=== PATIENT | male | born 1985 | race Caucasian/White ===

== ENCOUNTER 2020-09-29 16:21 | Emergency (ER) | payer SELFPAY ==
[2020-09-29 16:39] VITALS: BP 151/88; PULSE 67; RESP 18; TEMP 36.9; O2SAT 97; BMI 28.1
--- NOTE | 2020-09-29 17:48 | ED.GENADULT ---
HPI - General Adult General Chief complaint: Nausea/Vomiting/Diarrhea Stated complaint: vomiting Time Seen by Provider: 09/29/20 17:40 Source: patient Mode of arrival: ambulatory Limitations: no limitations History of Present Illness HPI narrative: Patient comes emergency room complaining of vomiting for 3 days. Patient states that he has been smoking marijuana, states that he is known to be slightly allergic to marijuana. Patient denies rash, no shortness of breath, no foreign body sensation in the oropharynx, no diarrhea. No UTI. Patient complaining of diffuse body ?cramping?. Patient complaining of a burning sensation in his esophagus. Patient states that he has been trying ondansetron with no relief. Related Data Previous Rx's Medication Instructions Recorded metoclopramide HCl [Reglan] 5 mg PO DAILY #10 tab 09/29/20 omeprazole 20 mg PO DAILY #10 cap 09/29/20 Allergies Allergy/AdvReac Type Severity Reaction Status Date / Time No Known Allergies Allergy Unverified 12/08/19 15:58 [No Known Allergies*] Review of Systems Review of Systems: Constitutional : No Weight loss, No Fever, No Chills, No Night Sweats, No Fatigue, No Malaise ENT/Mouth : No Hearing loss, No Ear Pain, No Nasal Congestion, No Sinus Pain, No Hoarseness, No sore throat, No Rhinorrhea, No Swallowing Difficulty Eyes: No Eye Pain, No Swelling, No Redness, No Foreign Body, No Discharge, No Vision Changes Cardiovascular : No Chest Pain, No SOB, No Dyspnea on Exertion, No Orthopnea, No Edema, No Palpitations Respiratory : No Cough, No Sputum, No Wheezing, No Smoke Exposure, No Dyspnea Gastrointestinal : Complaining of nausea and vomiting, complaining GERD, No Diarrhea, No Constipation, No abdominal Pain, No Hematochezia, No Melena Genitourinary : no irregular bleeding, No Dysuria, No Urinary Frequency, No Hematuria, No Urinary Incontinence, No Urgency, No Flank Pain, No Urinary Flow Changes, No Hesitancy Musculoskeletal : No joint pain, No Myalgias, No Joint Swelling, complaining of diffuse body cramping Skin : No Skin Lesions, No rash Neuro : No Weakness, No Numbness, No Paresthesias, No Loss of Consciousness, No Dizziness, No Headache Psych : No Anxiety/Panic, No Depression, No SI/HI/AH/VH, No Social Issues, Heme/Lymph: No Bruising, No Bleeding,No Lymphadenopathy Endocrine : No Polyuria, No Polydipsia, No Temperature Intolerance [facility] Past Medical History Medical History (Updated 09/29/20 @ 18:56 by Margaret Perez MD) ACL (anterior cruciate ligament) tear Cyclical vomiting Gastrointestinal mucositis (ulcerative) Marijuana abuse Social History Social History Advance Directives: No Advance Directives Information Provided: Yes Physical Exam Vital Signs: Vital Signs: Last Vital Signs Temp 98.5 F 09/29/20 16:39 Pulse 67 09/29/20 16:39 Resp 18 09/29/20 16:39 BP 151/88 H 09/29/20 16:39 Pulse Ox 97 09/29/20 16:39 Body Mass Index 28.1 Appearance: Alert. Oriented X3. No acute distress. Eyes: Pupils equal, round and reactive to light. ENT: Dry oral mucosa. Neck: Normal inspection. Neck supple. No lymph nodes noted. No crepitus CVS: Normal heart rate and rhythm. Pulses normal. Normal S1 and S2 Respiratory: No respiratory distress. Breath sounds normal. No Wheezing. No rales Abdomen: Soft and nontender. No rigidity. No distention. good BS x4 Skin: Skin warm and dry. Normal skin color. Normal skin turgor. Extremities: No lower extremity edema. No lower extremity edema. No Lacerations. No Rash Neuro: Oriented X 3. No motor deficit. No sensory deficit. Moving all extermities. No slurred speech. Course Course Course Narrative: All of patient's labs are pending. Patient is being giving IV fluids and antiemetic medication. Patient's symptoms is likely due to cyclic vomiting secondary to marijuana abuse. Sign out given to Dr. Crenshaw Discharge Plan Discharge Clinical Impression: Gastroesophageal reflux disease Vomiting Qualifiers: Vomiting type: unspecified Vomiting Intractability: unspecified Nausea presence: unspecified Qualified Code(s): R11.10 - Vomiting, unspecified Patient Disposition: Home, Self-Care Instructions: Acute Nausea and Vomiting (ED) Additional Instructions: Stay well hydrated, drink fluids with electrolytes such as Pedialyte, Gatorade. Please follow-up with your primary care physician tomorrow. If you have any worsening or new symptoms, please return to the emergency room or call 911 Prescriptions: New metoclopramide HCl [Reglan] 5 mg tablet 5 mg PO DAILY Qty: 10 RF: 0 omeprazole 20 mg capsule,delayed release(DR/EC) 20 mg PO DAILY Qty: 10 RF: 0
[2020-09-29 19:11] VITALS: BP 117/71; PULSE 94; RESP 14; TEMP 37.3; O2SAT 96
[2020-09-29 19:36] LABS: Hematocrit 46.1 % (42-52); Hemoglobin 16.4 g/dl (14.0-18.0); Mean Corpuscular HGB Conc 35.6 g/dl (31.0-36.0); Mean Corpuscular Hemoglobin 31.7 pg (27.0-33.0); Mean Corpuscular Volume 89.2 fL (80-98); Mean Platelet Volume 10.7 fL (9.4-12.4); Platelet Count 292 X10*3/uL (160-400); Red Blood Count 5.17 X10*6/uL (4.60-5.80); Red Cell Distribution Width 12.5 % (11.0-16.0)
[2020-09-29 19:46] LABS: WBC ABN SCTR FOR CBC 1
[2020-09-29] MEDS: Famotidine/PF 20 MG/2 ML VIAL IVPUSH (19:59)
[2020-09-29] MEDS: 0.9 % Sodium Chloride 1,000 ML 999 ML IVCONT ×2 (19:59→23:04)
[2020-09-29] MEDS: Prochlorperazine Edisylate 10 MG/2 ML VIAL IVPUSH (19:59)
[2020-09-29 20:01] LABS: Band Neutrophils Percent 0 % (3-5); Lymphocytes Percent Manual 10 % (20-40); Metamyelocytes Percent 1 %; Monocytes Percent Manual 11 % (2-11); Neutrophils Percent Manual 78 % (45-73)
[2020-09-29 20:05] LABS: Alanine Aminotransferase 15 U/L (0-40); Albumin Level 5.4 g/dL (3.5-5.0); Alkaline Phosphatase 103 U/L (39-117); Aspartate Amino Transferase 22 U/L (5-37); Bilirubin Direct 0.3 mg/dL (0.0-0.5); Bilirubin Total 0.8 mg/dL (0.0-1.0); Blood Urea Nitrogen 33 mg/dL (9-16); Creatinine Clr Calc Pharmacy 64.7; Estimated Glomerular Filt Rate 48; Glucose Random 124 mg/dL (60-115); Lipase 6 U/L (8-78); Total Protein 9.4 g/dL (6.5-8.0)
--- NOTE | 2020-09-29 20:05 | PC.NURSE ---
pt medicated per md order, reports 7/10 bilateral flank pain with diffuse body cramping/spasms intermittently. Pt up to bathroom to enduce vomitting, wrenching and belching noted. PT with fluids infusing and on a pole. RN will continue to monitor
[2020-09-29 20:08] LABS: Platelet Estimate NORMAL (NORMAL)
[2020-09-29 20:10] LABS: Anion Gap 21 (12-20); Calcium 11.4 mg/dL (8.4-10.2); Carbon Dioxide 25 mmol/L (22-29); Chloride 98 mmol/L (96-108); Potassium 4.1 mmol/L (3.3-5.1); Sodium 140 mmol/L (135-145)
[2020-09-29 20:15] LABS: RBC Morphology NOTED
[2020-09-29 20:16] LABS: Schistocytes 1+ (0-2) /OIF
[2020-09-29 20:17] LABS: Hypersegmented Neutrophils PRESENT; Microcytosis 1+ (5-14) /OIF; Platelet Morphology Comment NORM
[2020-09-29 20:18] LABS: Lymphocytes Absolute Manual 2.1 X10*3/uL (0.6-4.8); Metamyelocytes Absolute 0.2 X10*3/uL; Monocytes Absolute Manual 2.3 X10*3/uL (0.0-1.2); Neutrophils Absolute Manual 16.5 X10*3/uL (2.2-7.9); White Blood Count 21.2 X10*3/uL (4.8-10.8)
[2020-09-29 22:00] VITALS: BP 105/63; PULSE 62; RESP 22; TEMP 37.1; O2SAT 95
--- NOTE | 2020-09-29 22:15 | PC.NURSE ---
RN in bed 8 and patient could be heard stopping a passing by RN stating I'm waiting for my nurse, I'm waiting for my other bag of fluids. If I don't get it I'll just go home . Rn to bedside and re-educated patient on use of call brown as it was noted to be on the bed. Pt made aware of no new fluid orders at this time and plan for potential discharge. PT states that he does not feel comfortable with a dc as he reports I usually get like 4-5 bags. I'm not ready to go home. I still feel dizzy, weak and don't think I can hold anything down ; RN stated she would notify the MD of his reports.
--- NOTE | 2020-09-29 23:11 | PC.NURSE ---
RN to bedside to medicate pt per MD. Pt denies the presence of pain at this time however reports intermittent nausea without vomiting. Urine sample obtained and sent for testing. Pt offered a warm blanket and declined. Call brown is within reach and RN will continue to monitor.
[2020-09-29 23:13] LABS: Glucose Urine UA NEG (NEG); Leukocyte Esterase Urine NEG (NEG); Nitrite Urine NEG (NEG); Specific Gravity - Urine >= 1.030 (1.005-1.025); Urine Blood NEG (NEG); Urine Ketones 15 MG/DL (NEG); Urine Protein TRACE MG/DL (NEG-TRACE)
[2020-09-29 23:19] LABS: Appearance Urine CLEAR; Color Urine YELLOW
[2020-09-29 23:33] LABS: Amphetamine Screen Urine Not Detected (Not Detect); Barbiturates, Urine Not Detected (Not Detect); Benzodiazepines Screen Urine Not Detected (Not Detect); Cannabinoid Screen Urine POSITIVE (Not Detect); Cocaine Screen Urine Not Detected (Not Detect); Opiate Screen Urine Not Detected (Not Detect); Phencyclidine Screen Urine Not Detected (Not Detect)
[2020-09-30] MEDS: 0.9 % Sodium Chloride 1,000 ML 999 ML IVCONT (00:49)
[2020-09-30 02:53] VITALS: BP 128/58; PULSE 61; RESP 18; O2SAT 99
== END 2020-09-30 03:05 | disposition home or self-care (01) ==
PROVIDERS: Emergency Provider Emergency Medicine
DX: R11.10 Vomiting, unspecified (principal); K21.9 Gastro-esophageal reflux disease without esophagitis; F12.10 Cannabis abuse, uncomplicated
CPT/HCPCS: 36415; 80048; 80076; 80307; 81003; 83690; 85007; 85027; 96360; 96361; 96374; 96375; 99284

== ENCOUNTER 2021-08-15 15:01 | Emergency (ER) | payer SELFPAY ==
[2021-08-15 15:47] VITALS: BP 114/84; PULSE 107; RESP 18; TEMP 36.8; O2SAT 98; BMI 26.6
[2021-08-15] MEDS: Ondansetron ODT 4 MG TAB.RAPDIS TRANSLINGU (15:51)
[2021-08-15 17:24] VITALS: BP 125/74; PULSE 101; RESP 18; O2SAT 98
[2021-08-15 17:28] LABS: Basophils Absolute Auto 0.1 X10*3/uL (0.0-0.2); Basophils Percent Auto 0.3 % (0-2); Eosinophils Percent Auto 0.1 % (0-4); Hematocrit 48.5 % (42.0-52.0); Hemoglobin 16.4 g/dl (14.0-18.0); Imm Gran Abs Auto 0.26 X10*3/uL (0.00-0.03); Imm Gran Pct Auto 1.1 % (0.0-0.4); Lymphocytes Absolute Auto 1.6 X10*3/uL (1.2-4.9); MANUAL DIFF FLAG SCAN; Mean Corpuscular HGB Conc 33.8 g/dl (31.0-36.0); Mean Corpuscular Hemoglobin 31.1 pg (27.0-33.0); Mean Platelet Volume 10.9 fL (9.4-12.4); Monocytes Absolute Auto 1.5 X10*3/uL (0.1-1.2); Monocytes Percent Auto 6.6 % (2-11); Neutrophils Absolute Auto 19.7 x10*3/uL (2.0-8.3); Neutrophils Percent Auto 84.9 % (45-73); Platelet Count 320 X10*3/uL (160-400); Red Blood Count 5.27 X10*6/uL (4.60-5.80); Red Cell Distribution Width 13.5 % (11.0-16.0); SCAN SMEAR FLAG 1; White Blood Count 23.2 X10*3/uL (4.8-10.8)
[2021-08-15 17:49] LABS: SLIDE REVIEW VERIFIED
[2021-08-15 17:50] LABS: Influenza A Negative (Negative); Influenza B2 Negative (Negative)
[2021-08-15 17:51] LABS: COVID-19 Test Negative (Negative); IDNOW Serial# 16C4AD1C
[2021-08-15 18:01] LABS: Alanine Aminotransferase 45 U/L (0-40); Albumin Level 5.7 g/dL (3.5-5.0); Alkaline Phosphatase 74 U/L (39-117); Anion Gap 36 (12-20); Aspartate Amino Transferase 46 U/L (5-37); Bilirubin Total 0.8 mg/dL (0.0-1.0); Blood Urea Nitrogen 26 mg/dL (9-16); Calcium 11.6 mg/dL (8.4-10.2); Carbon Dioxide 13 mmol/L (22-29); Chloride 96 mmol/L (96-108); Creatinine Clr Calc Pharmacy 37.1; Estimated Glomerular Filt Rate 28; Glucose Random 152 mg/dL (60-115); Potassium 4.3 mmol/L (3.3-5.1); Sodium 141 mmol/L (135-145); Total Protein 9.8 g/dL (6.5-8.0)
[2021-08-15 18:30] LABS: Glucose, Whole Blood 162 mg/dL (60-115)
--- NOTE | 2021-08-15 19:44 | PC.NURSE ---
Pt requesting not to have a CT performed at this time. Labs and plan to move pt to ED [facility]
[2021-08-15 22:03] VITALS: BP 148/85; PULSE 65; RESP 18; TEMP 37.1; O2SAT 97
[2021-08-15 22:27] LABS: Acetone, serum QL Small (Negative)
--- NOTE | 2021-08-15 22:44 | ED_ITS ---
HPI - Nausea/Vomiting/Diarrhea General Chief complaint: Nausea/Vomiting/Diarrhea Stated complaint: vomiting Time Seen by Provider: 08/15/21 16:57 Source: patient Mode of arrival: ambulatory History of Present Illness HPI Narrative: Is a 35-year-old male with history of ulcerative colitis not currently on medications as well as history of cyclical vomiting and reports that he smoked marijuana on Thursday and then began developing multiple in repeated nausea and vomiting episodes with the inability to keep down anything to eat or drink. He denies any significant diarrhea and on the occasions that he has experienced diarrhea denies the presence of blood. Otherwise, he denies any fever, chills, urinary symptoms, shortness breath or chest pain. Related Data Previous Rx's Medication Instructions Recorded metoclopramide HCl 5 mg tablet 5 mg PO DAILY #10 tab 09/29/20 (Reglan) omeprazole 20 mg capsule,delayed 20 mg PO DAILY #10 cap 09/29/20 release omeprazole 40 mg capsule,delayed 40 mg PO DAILY #30 cap 08/16/21 release ondansetron 4 mg disintegrating 4 mg PO Q6H PRN #10 tab 08/16/21 tablet Allergies Allergy/AdvReac Type Severity Reaction Status Date / Time No Known Allergies Allergy Verified 08/15/21 15:46 [No Known Allergies*] Review of Systems Review of Systems: Pertinent positives and negatives as stated in HPI 10 point review of systems is otherwise negative. PMFSH Past Medical History Source: nursing notes reviewed Medical History ACL (anterior cruciate ligament) tear Cyclical vomiting Gastrointestinal mucositis (ulcerative) Marijuana abuse Social History Social History Advance Directives: No Advance Directives Information Provided: No Physical Exam Vital Signs: Vital Signs: Last Vital Signs Temp 98.5 F 08/16/21 06:07 Pulse 78 08/16/21 06:07 Resp 16 08/16/21 06:07 BP 142/69 H 08/16/21 06:07 Pulse Ox 98 08/16/21 06:07 BMI result Body Mass Index 26.6 VITAL SIGNS: Reviewed. GENERAL: Well developed, well nourished, in no acute distress. HEAD: Normocephalic/atraumatic EYES: PERRLA, EOMI EARS: Ext canals without abnormality, TMs non-bulging and non-erythematous NOSE: Nares patent bilateral OROPHARYNX: no oral lesions noted, posterior pharynx clear, dry mucosa NECK: Supple, no adenopathy LUNGS: Normal breath sounds. No adventitious sounds or accessory muscle use. SpO2<97> CARDIOVASCULAR: Regular rate and rhythm without noted murmurs ABDOMEN: Soft, non-tender, non-distended with bowel sounds. SKIN: Inspection of the skin reveals no rashes NEUROLOGIC: Alert and oriented x 4. Strength and sensation to light touch were grossly intact x 4. Course Course Course Narrative: 35-year-old male with history and clinical presentation consistent with severe dehydration and on review of all investigations the noted leukocytosis is likely secondary to cyclical vomiting as chest/abdomen are otherwise benign on clinical exam, there is no evidence ulcerative colitis flare, patient is afebrile and noted to be significantly acidotic again pointing towards significant dehydration. Patient to receive antiemetics/IV fluids/medications for gastritis. After total 4 L of IV fluids in re-evaluation of chemistries patient shows a significant improvement in dehydration status and will be discharged home in stable condition with a prescription for omeprazole as well as strict instructions to attempt to avoid THC ingestion as much as possible. In addition, patient will be provided with antiemetics. MDM - Nausea/Vomiting/Diarrhea Lab Data Result diagrams: 08/15/21 17:11 08/16/21 05:50 Labs: Lab Results 08/15/21 08/15/21 08/15/21 Range/Units 17:11 17:11 17:11 WBC 23.2 H (4.8-10.8) X10*3/uL RBC 5.27 (4.60-5.80) X10*6/uL Hgb 16.4 (14.0-18.0) g/dl Hct 48.5 (42.0-52.0) % MCV 92.0 (80.0-98.0) fL MCH 31.1 (27.0-33.0) pg MCHC 33.8 (31.0-36.0) g/dl RDW 13.5 (11.0-16.0) % Plt Count 320 (160-400) X10*3/uL MPV 10.9 (9.4-12.4) fL Immature Gran % (Auto) 1.1 H (0.0-0.4) % Neut % (Auto) 84.9 H (45-73) % Lymph % (Auto) 7.0 L (20-40) % [place] % (Auto) 6.6 (2-11) % Eos % (Auto) 0.1 (0-4) % Baso % (Auto) 0.3 (0-2) % Lymph # (Auto) 1.6 (1.2-4.9) X10*3/uL [place] # (Auto) 1.5 H (0.1-1.2) X10*3/uL Eos # (Auto) 0.0 (0.0-0.4) X10*3/uL Baso # (Auto) 0.1 (0.0-0.2) X10*3/uL Abs Immat Gran (auto) 0.26 H (0.00-0.03) X10*3/uL Absolute Neuts (auto) 19.7 H (2.0-8.3) x10*3/uL Absolute Nucleated RBC 0.000 (0.0-0.012) X10*3/uL Nucleated RBC % (auto) 0.0 (0.0-0.2) /100WBC Smear Tech's Comments VERIFIED Sodium 141 (135-145) mmol/L Potassium 4.3 (3.3-5.1) mmol/L Chloride 96 (96-108) mmol/L Carbon Dioxide 13 L (22-29) mmol/L Anion Gap 36 H (12-20) BUN 26 H (9-16) mg/dL Creatinine 2.62 H (0.5-1.4) mg/dL Estim Creat Clear Calc 37.1 Estimated GFR 28 POC Glucose (60-115) mg/dL Random Glucose 152 H (60-115) mg/dL Lactic Acid (0.5-2.0) mmol/L Calcium 11.6 H (8.4-10.2) mg/dL Total Bilirubin 0.8 (0.0-1.0) mg/dL AST 46 H D (5-37) U/L ALT 45 H (0-40) U/L Alkaline Phosphatase 74 D (39-117) U/L Total Protein 9.8 H (6.5-8.0) g/dL Albumin 5.7 H (3.5-5.0) g/dL Urine Color Urine Appearance Urine pH (5.0-8.0) Ur Specific [place] (1.005-1.025) Urine Protein (NEG-TRACE) MG/DL Urine Glucose (UA) (NEG) MG/DL Urine Ketones (NEG) MG/DL Urine Blood (NEG) Urine Nitrite (NEG) Ur Leukocyte Esterase (NEG) Urine RBC (0) /HPF Urine WBC (0-4) /HPF Ur Squamous Epith Cells /LPF Urine Bacteria /LPF Hyaline Casts /LPF Granular Casts /LPF Urine Mucus /LPF Acetone, Qual Small H (Negative) COVID-19 (ADRIANA) (Negative) COVID-19 Clin Com Influenza Type A (ANAMIKA) Negative (Negative) Influenza Type B (ANAMIKA) Negative (Negative) Influenza A & B Note See Note 08/15/21 08/15/21 08/15/21 Range/Units 17:11 17:26 22:34 WBC (4.8-10.8) X10*3/uL RBC (4.60-5.80) X10*6/uL Hgb (14.0-18.0) g/dl Hct (42.0-52.0) % MCV (80.0-98.0) fL MCH (27.0-33.0) pg MCHC (31.0-36.0) g/dl RDW (11.0-16.0) % Plt Count (160-400) X10*3/uL MPV (9.4-12.4) fL Immature Gran % (Auto) (0.0-0.4) % Neut % (Auto) (45-73) % Lymph % (Auto) (20-40) % [place] % (Auto) (2-11) % Eos % (Auto) (0-4) % Baso % (Auto) (0-2) % Lymph # (Auto) (1.2-4.9) X10*3/uL [place] # (Auto) (0.1-1.2) X10*3/uL Eos # (Auto) (0.0-0.4) X10*3/uL Baso # (Auto) (0.0-0.2) X10*3/uL Abs Immat Gran (auto) (0.00-0.03) X10*3/uL Absolute Neuts (auto) (2.0-8.3) x10*3/uL Absolute Nucleated RBC (0.0-0.012) X10*3/uL Nucleated RBC % (auto) (0.0-0.2) /100WBC Smear Tech's Comments Sodium (135-145) mmol/L Potassium (3.3-5.1) mmol/L Chloride (96-108) mmol/L Carbon Dioxide (22-29) mmol/L Anion Gap (12-20) BUN (9-16) mg/dL Creatinine (0.5-1.4) mg/dL Estim Creat Clear Calc Estimated GFR POC Glucose 162 H (60-115) mg/dL Random Glucose (60-115) mg/dL Lactic Acid 1.5 (0.5-2.0) mmol/L Calcium (8.4-10.2) mg/dL Total Bilirubin (0.0-1.0) mg/dL AST (5-37) U/L ALT (0-40) U/L Alkaline Phosphatase (39-117) U/L Total Protein (6.5-8.0) g/dL Albumin (3.5-5.0) g/dL Urine Color Urine Appearance Urine pH (5.0-8.0) Ur Specific [place] (1.005-1.025) Urine Protein (NEG-TRACE) MG/DL Urine Glucose (UA) (NEG) MG/DL Urine Ketones (NEG) MG/DL Urine Blood (NEG) Urine Nitrite (NEG) Ur Leukocyte Esterase (NEG) Urine RBC (0) /HPF Urine WBC (0-4) /HPF Ur Squamous Epith Cells /LPF Urine Bacteria /LPF Hyaline Casts /LPF Granular Casts /LPF Urine Mucus /LPF Acetone, Qual (Negative) COVID-19 (ADRIANA) Negative (Negative) COVID-19 Clin Com See Note Influenza Type A (ANAMIKA) (Negative) Influenza Type B (ANAMIKA) (Negative) Influenza A & B Note 08/16/21 08/16/21 08/16/21 Range/Units 01:11 02:37 05:50 WBC (4.8-10.8) X10*3/uL RBC (4.60-5.80) X10*6/uL Hgb (14.0-18.0) g/dl Hct (42.0-52.0) % MCV (80.0-98.0) fL MCH (27.0-33.0) pg MCHC (31.0-36.0) g/dl RDW (11.0-16.0) % Plt Count (160-400) X10*3/uL MPV (9.4-12.4) fL Immature Gran % (Auto) (0.0-0.4) % Neut % (Auto) (45-73) % Lymph % (Auto) (20-40) % [place] % (Auto) (2-11) % Eos % (Auto) (0-4) % Baso % (Auto) (0-2) % Lymph # (Auto) (1.2-4.9) X10*3/uL [place] # (Auto) (0.1-1.2) X10*3/uL Eos # (Auto) (0.0-0.4) X10*3/uL Baso # (Auto) (0.0-0.2) X10*3/uL Abs Immat Gran (auto) (0.00-0.03) X10*3/uL Absolute Neuts (auto) (2.0-8.3) x10*3/uL Absolute Nucleated RBC (0.0-0.012) X10*3/uL Nucleated RBC % (auto) (0.0-0.2) /100WBC Smear Tech's Comments Sodium 139 139 (135-145) mmol/L Potassium 4.1 4.2 (3.3-5.1) mmol/L Chloride 99 107 (96-108) mmol/L Carbon Dioxide 18 L 19 L (22-29) mmol/L Anion Gap 26 H 17 (12-20) BUN 32 H 25 H (9-16) mg/dL Creatinine 2.39 H 1.72 H (0.5-1.4) mg/dL Estim Creat Clear Calc 40.7 56.5 Estimated GFR 31 46 POC Glucose (60-115) mg/dL Random Glucose 116 H 115 (60-115) mg/dL Lactic Acid (0.5-2.0) mmol/L Calcium 10.3 H D 8.4 D (8.4-10.2) mg/dL Total Bilirubin (0.0-1.0) mg/dL AST (5-37) U/L ALT (0-40) U/L Alkaline Phosphatase (39-117) U/L Total Protein (6.5-8.0) g/dL Albumin (3.5-5.0) g/dL Urine Color YELLOW Urine Appearance CLEAR Urine pH 6.0 (5.0-8.0) Ur Specific [place] >= 1.030 H (1.005-1.025) Urine Protein 1+ H (NEG-TRACE) MG/DL Urine Glucose (UA) NEG (NEG) MG/DL Urine Ketones >=80 (NEG) MG/DL Urine Blood 1+ H (NEG) Urine Nitrite NEG (NEG) Ur Leukocyte Esterase NEG (NEG) Urine RBC 1-4 (0) /HPF Urine WBC 1-4 (0-4) /HPF Ur Squamous Epith Cells 1+ /LPF Urine Bacteria 2+ /LPF Hyaline Casts 15-29 /LPF Granular Casts 5-9 /LPF Urine Mucus 3+ /LPF Acetone, Qual (Negative) COVID-19 (ADRIANA) (Negative) COVID-19 Clin Com Influenza Type A (ANAMIKA) (Negative) Influenza Type B (ANAMIKA) (Negative) Influenza A & B Note Discharge Plan Discharge Clinical Impression: Marijuana abuse, Dehydration, Cyclical vomiting, Gastritis Patient Disposition: Home, Self-Care Instructions: Gastritis (ED), Dehydration (ED), Diet for Stomach Ulcers and Gastritis (ED), Cannabis Abuse (ED), Cyclic Vomiting Syndrome (ED) Additional Instructions: 1. Increase fluid hydration, especially with water. 2. Avoid and/or significantly decrease THC use. 3. You have been provided with a prescription for an irritated stomach as well as a prescription to control nausea. 4. Follow-up with a primary care provider the next 2-3 days for re-evaluation. Return to the ER for worsening symptoms. Prescriptions: New ondansetron 4 mg tablet,disintegrating 4 mg PO Q6H PRN (Reason: nausea and vomiting) Qty: 10 0RF omeprazole 40 mg capsule,delayed release(DR/EC) 40 mg PO DAILY Qty: 30 0RF No Action metoclopramide HCl [Reglan] 5 mg tablet 5 mg PO DAILY Qty: 10 0RF omeprazole 20 mg capsule,delayed release(DR/EC) 20 mg PO DAILY Qty: 10 0RF
[2021-08-15 22:58] LABS: Lactic Acid 1.5 mmol/L (0.5-2.0)
[2021-08-15] MEDS: 0.9 % Sodium Chloride 2,000 ML 999 ML IV (23:17)
[2021-08-15] MEDS: Famotidine/PF 20 MG/2 ML VIAL IVPUSH (23:18)
[2021-08-15] MEDS: ondansetron HCL 4 MG/2 ML VIAL IVPUSH (23:18)
[2021-08-16 01:12] VITALS: BP 131/72; PULSE 69; RESP 18; TEMP 37.2; O2SAT 97
--- NOTE | 2021-08-16 01:15 | PC.NURSE ---
pt made aware of need for urine sample, call brown placed within reach, advised to call if he is able to provide sample.
[2021-08-16 01:47] LABS: Anion Gap 26 (12-20); Blood Urea Nitrogen 32 mg/dL (9-16); Calcium 10.3 mg/dL (8.4-10.2); Carbon Dioxide 18 mmol/L (22-29); Chloride 99 mmol/L (96-108); Creatinine Clr Calc Pharmacy 40.7; Estimated Glomerular Filt Rate 31; Glucose Random 116 mg/dL (60-115); Potassium 4.1 mmol/L (3.3-5.1); Sodium 139 mmol/L (135-145)
[2021-08-16 02:59] LABS: Appearance Urine CLEAR; Color Urine YELLOW; Glucose Urine UA NEG (NEG); Leukocyte Esterase Urine NEG (NEG); Nitrite Urine NEG (NEG); Specific Gravity - Urine >= 1.030 (1.005-1.025); UACC Culture Trigger NO; Urine Blood 1+ (NEG); Urine Ketones >=80 MG/DL (NEG); Urine Protein 1+ MG/DL (NEG-TRACE)
[2021-08-16] MEDS: Lidocaine HCl Viscous 2 % 15 ML SOLUTION 10 ML MUCOUS MEM (03:05)
[2021-08-16] MEDS: Sucralfate Oral Suspension 1 GM/10 ML ORAL.SUSP PO (03:06)
[2021-08-16] MEDS: Magnesium Hydrox/Alum Hydrox 30 ML ORAL.SUSP PO (03:06)
[2021-08-16] MEDS: 0.9 % Sodium Chloride 2,000 ML 999 ML IV ×2 (03:07→04:16)
[2021-08-16 03:19] LABS: Bacteria Urine 2+ /LPF; Mucus Urine 3+ /LPF; Squamous Epithelial Cell Urine 1+ /LPF
[2021-08-16] MEDS: Prochlorperazine Edisylate 10 MG/2 ML VIAL IVPUSH (04:15)
[2021-08-16 06:07] VITALS: BP 142/69; PULSE 78; RESP 16; TEMP 36.9; O2SAT 98
[2021-08-16 06:09] LABS: Anion Gap 17 (12-20); Blood Urea Nitrogen 25 mg/dL (9-16); Calcium 8.4 mg/dL (8.4-10.2); Carbon Dioxide 19 mmol/L (22-29); Chloride 107 mmol/L (96-108); Creatinine Clr Calc Pharmacy 56.5; Estimated Glomerular Filt Rate 46; Glucose Random 115 mg/dL (60-115); Potassium 4.2 mmol/L (3.3-5.1); Sodium 139 mmol/L (135-145)
== END 2021-08-16 06:34 | disposition home or self-care (01) ==
PROVIDERS: Emergency Provider Student in an Organized Health Care Education/Training Program
DX: K29.70 Gastritis, unspecified, without bleeding (principal); F12.10 Cannabis abuse, uncomplicated; R11.15 Cyclical vomiting syndrome unrelated to migraine; E86.0 Dehydration; Z20.822 Contact with and (suspected) exposure to COVID-19
CPT/HCPCS: 36415; 80048; 80053; 81001; 82009; 82947; 83605; 85025; 87040; 87502; 87635; 96361; 96374; 96375; 99284; 99285; J2405

== ENCOUNTER → 2021-12-03 14:55 | Outpatient (BNVA) | payer OTHER, SELFPAY | PROVIDERS: Visit Provider Physician Assistant Medical | DX: S86.112A Strain of other muscle(s) and tendon(s) of posterior muscle group at lower leg level, left leg, initial encounter (principal); X58.XXXA Exposure to other specified factors, initial encounter | CPT/HCPCS: 99203 ==

== ENCOUNTER → 2021-12-10 14:57 | Outpatient (BNVA) | payer SELFPAY | PROVIDERS: Visit Provider Physician Assistant Medical | DX: S86.112A Strain of other muscle(s) and tendon(s) of posterior muscle group at lower leg level, left leg, initial encounter (principal); X58.XXXA Exposure to other specified factors, initial encounter | CPT/HCPCS: 99214 ==